=== PATIENT | male | born 1975 | race Caucasian/White ===

== ENCOUNTER 2017-12-28 14:32 | Inpatient (IN) | payer MEDICAID ==
[~2017-12-28] VITALS: Ht 180.3 cm; Wt 127.7 kg
[~2017-12-28 14:32] MED LIST: BENA20TA2 PO; BENA5TAB2 PO; CARB200T PO; DIAZ10TA PO; DIPH25CA61 PO; ETOMIDATE 20 MG/10 ML ONE; LEVO25TA4 PO; LEVO75TA5 PO; METF10002 PO; METF500T4 PO; METH750T87 PO; MIDAZOLAM 1 MG/ML, 2ML ONE; MORP30TA81 PO; NICO-586 TP; OMEP40CA6 PO; ONDA4TAB12 PO; OXYC-307 PO; OXYC20TA2 PO; PHEN-484 PO; PRAV10TA2 PO; PRAV20TA2 PO; PROM25TA10 PO; QUET300T5 PO; RANI150T4 PO; SENN1TAB67 PO; SERT100T PO; SERT25TA PO; SUCCINYLCHOLINE 20 MG/ML, 10ML ONE
[2017-12-28] MEDS ORDERED: NALOXONE 0.4 MG/ML, 1ML ONE (14:37)
[2017-12-28] MEDS ORDERED: SODIUM CHLORIDE 0.9% 1,000 ML IV ONE (14:51)
[2017-12-28] MEDS ORDERED: SODIUM CHLORIDE 0.9% 1,000ML IVBOLUS ONE (15:00)
[2017-12-28] MEDS ORDERED: PLEASE ENTER HEIGHT AND WEIGHT MC SCH ×2 (15:00→15:30)
[2017-12-28] MEDS ORDERED: NALOXONE 0.4 MG/ML, 1ML IVPush PRN ×2 (15:00→23:00)
[2017-12-28] MEDS ORDERED: SODIUM CHLORIDE FLUSH 10ML SYR IVF ONE (15:00)
[2017-12-28 15:16] LABS: BASOPHILS # (AUTO) 0.03 x10^3/uL (0-0.1); BASOPHILS % (AUTO) 0 % (0-1); EOSINOPHILS # (AUTO) 0.03 x10^3/uL (0-0.4); EOSINOPHILS % (AUTO) 0 % (1-7); LYMPHOCYTES # (AUTO) 1.75 x10^3/uL (1-3.4); LYMPHOCYTES % (AUTO) 22 % (22-44); MD NO; MEAN CORPUSCULAR HEMOGLOBIN 31.3 pg (27.5-34.5); MONOCYTES % (AUTO) 7 % (2-9); NEUTROPHILS # (AUTO) 5.69 x10^3/uL (1.8-6.8); NEUTROPHILS % (AUTO) 70 % (42-75); PLATELET COUNT 232 x10^3/uL (130-400); RED BLOOD COUNT 5.23 x10^6/uL (4.38-5.82); RED CELL DISTRIBUTION WIDTH 13.6 % (9.4-14.8)
[2017-12-28] MEDS ORDERED: PROPOFOL 10 MG/ML, 20ML IVPush ONE (15:30)
[2017-12-28] MEDS ORDERED: ETOMIDATE 20 MG/10 ML IV ONE (15:30)
[2017-12-28] MEDS ORDERED: SUCCINYLCHOLINE 20 MG/ML, 10ML IVPush ONE (15:30)
[2017-12-28] MEDS ORDERED: MIDAZOLAM 1 MG/ML, 5ML IVP ONE (15:30)
[2017-12-28 15:31] LABS: ALANINE AMINOTRANSFERASE 38 U/L (12-78); ALBUMIN 3.9 g/dL (3.4-5.0); ANION GAP 12 mmol/L (5-15); CALCIUM 8.1 mg/dL (8.5-10.1); CHLORIDE 110 mmol/L (98-107); CREATININE 1.39 mg/dL (0.7-1.3)
[2017-12-28 15:33] LABS: ALKALINE PHOSPHATASE 55 U/L (45-117); BILIRUBIN,TOTAL 0.7 mg/dL (0.2-1.0); SALICYLATE LEVEL 2.2 mg/dL (2.8-20.0); TOTAL PROTEIN 8.1 g/dL (6.4-8.2)
[2017-12-28 15:34] LABS: ACETAMINOPHEN < 2 mcg/mL (10-30)
[2017-12-28] MEDS ORDERED: PROPOFOL 100 ML IV ONE ×2 (16:25→18:50)
[2017-12-28 17:13] LABS: AMPHETAMINE SCREEN, URINE Negative (Negative); BARBITURATE SCREEN, URINE Negative (Negative); BENZODIAZEPINE SCREEN, URINE Positive (Negative); CANNABINOID SCREEN, URINE Positive (Negative); COCAINE SCREEN, URINE Negative (Negative); METHADONE SCREEN, URINE Negative (Negative); OPIATE SCREEN, URINE Positive (Negative)
[2017-12-28] MEDS ORDERED: BISACODYL 10 MG SUPP PR PRN (18:00)
[2017-12-28] MEDS: HEPARIN 5,000 UNITS/ML, 1ML SQ SCH (18:00)
[2017-12-28] MEDS ORDERED: THIAMINE 100 MG, MVI ADULT 10 ML, FOLIC ACID 1 MG in D5%-0.9% NACL 1,000 ML IV SCH (18:00)
[2017-12-28] MEDS ORDERED: TOPI50TA8 PO (18:20)
[2017-12-28] MEDS ORDERED: TRAZ100T15 PO (18:20)
[2017-12-28] MEDS ORDERED: NAPR500T4 PO (18:20)
[2017-12-28] MEDS ORDERED: DICY20TA3 PO (18:20)
[2017-12-28] MEDS ORDERED: PANT40TA3 PO (18:20)
[2017-12-28] MEDS ORDERED: TIZA4CAP PO (18:20)
[2017-12-28] MEDS ORDERED: GABA300C10 PO (18:20)
[2017-12-28] MEDS ORDERED: ALPR-475 PO (18:20)
[2017-12-28] MEDS ORDERED: BUSP10TA PO (18:20)
[2017-12-28] MEDS: PROPOFOL 100 ML IV PRN ×2 (18:43→21:35)
[2017-12-28] MEDS ORDERED: LIDOCAINE-MPF 1%, 2ML ENDO PRN (19:00)
[2017-12-28] MEDS ORDERED: LACTULOSE 20 GM/30 ML UDC NG PRN (19:00)
[2017-12-28] MEDS ORDERED: PHARMACY MAY ADJ FOR RENAL FX MC SCH (19:00)
[2017-12-28 19:08] LABS: MICROSCOPIC INDICATED
[2017-12-28 19:22] LABS: CULTURE INDICATED? NO
[2017-12-28] MEDS ORDERED: LORazepam 2 MG/ML, 1ML IVPush PRN (22:30)
[2017-12-29] MEDS: HEPARIN 5,000 UNITS/ML, 1ML SQ SCH ×3 (02:20→17:23)
[2017-12-29] MEDS: PROPOFOL 100 ML IV PRN ×2 (02:24→05:49)
[2017-12-29 04:15] VITALS: BP 130/78
[2017-12-29 04:38] LABS: BASOPHILS # (AUTO) 0.03 x10^3/uL (0-0.1); BASOPHILS % (AUTO) 0 % (0-1); EOSINOPHILS # (AUTO) 0.02 x10^3/uL (0-0.4); EOSINOPHILS % (AUTO) 0 % (1-7); LYMPHOCYTES # (AUTO) 1.33 x10^3/uL (1-3.4); LYMPHOCYTES % (AUTO) 14 % (22-44); MD NO; MEAN CORPUSCULAR HGB CONC 33.8 g/dL (33.2-36.2); MEAN CORPUSCULAR VOLUME 91.8 fL (81-97); MEAN PLATELET VOLUME 8.2 fL (7.4-10.4); MONOCYTES # (AUTO) 0.71 x10^3/uL (0.2-0.8); MONOCYTES % (AUTO) 8 % (2-9); NEUTROPHILS # (AUTO) 7.16 x10^3/uL (1.8-6.8); NEUTROPHILS % (AUTO) 77 % (42-75); PLATELET COUNT 195 x10^3/uL (130-400); RED BLOOD COUNT 4.92 x10^6/uL (4.38-5.82); RED CELL DISTRIBUTION WIDTH 13.5 % (9.4-14.8)
[2017-12-29 04:46] LABS: ALANINE AMINOTRANSFERASE 44 U/L (12-78); ALBUMIN 3.4 g/dL (3.4-5.0); ANION GAP 11 mmol/L (5-15); CALCIUM 7.7 mg/dL (8.5-10.1); CHLORIDE 110 mmol/L (98-107); CREATININE 1.23 mg/dL (0.7-1.3)
[2017-12-29 04:55] VITALS: BP 132/78
[2017-12-29 04:57] LABS: ALKALINE PHOSPHATASE 54 U/L (45-117); BILIRUBIN,TOTAL 0.6 mg/dL (0.2-1.0); THYROID STIMULATING HORMONE 0.789 mIU/L (0.358-3.740); TOTAL PROTEIN 7.2 g/dL (6.4-8.2)
[2017-12-29] MEDS ORDERED: PANTOPRAZOLE 40 MG IV IVPush SCH (07:30)
[2017-12-29] MEDS ORDERED: POTASSIUM CHLORIDE 10% 40 MEQ/30 ML UDC PO ONE (09:00)
[2017-12-29] MEDS: LEVOTHYROXINE 75 MCG TABLET PO SCH (09:38)
[2017-12-29] MEDS: IBUPROFEN 200 MG TABLET PO PRN ×2 (11:46→19:34)
[2017-12-29] MEDS ORDERED: THIAMINE 200 MG, MVI ADULT 10 ML, FOLIC ACID 1 MG in D5%-0.9% NACL 1,000 ML IV SCH (18:00)
[2017-12-29] MEDS ORDERED: NICOTINE 21 MG/24 HR PATCH.TD24 TD SCH (21:30)
[2017-12-30] MEDS: HEPARIN 5,000 UNITS/ML, 1ML SQ SCH ×3 (02:05→20:35)
[2017-12-30] MEDS: ONDANSETRON 2MG/ML, 2ML IVPush PRN (02:29)
[2017-12-30 02:42] VITALS: BP 132/87
[2017-12-30 05:00] LABS: BASOPHILS # (AUTO) 0.01 x10^3/uL (0-0.1); BASOPHILS % (AUTO) 0 % (0-1); EOSINOPHILS % (AUTO) 2 % (1-7); LYMPHOCYTES # (AUTO) 1.37 x10^3/uL (1-3.4); LYMPHOCYTES % (AUTO) 26 % (22-44); MD NO; MEAN CORPUSCULAR HEMOGLOBIN 31.2 pg (27.5-34.5); MEAN CORPUSCULAR HGB CONC 34.7 g/dL (33.2-36.2); MEAN PLATELET VOLUME 7.9 fL (7.4-10.4); MONOCYTES % (AUTO) 8 % (2-9); NEUTROPHILS % (AUTO) 64 % (42-75); PLATELET COUNT 159 x10^3/uL (130-400); RED BLOOD COUNT 4.29 x10^6/uL (4.38-5.82); RED CELL DISTRIBUTION WIDTH 13.3 % (9.4-14.8)
[2017-12-30 06:38] VITALS: BP 154/95
[2017-12-30] MEDS: LEVOTHYROXINE 75 MCG TABLET PO SCH (07:58)
[2017-12-30] MEDS: IBUPROFEN 200 MG TABLET PO PRN ×2 (09:12→17:16)
[2017-12-30 12:54] VITALS: BP 150/88
[2017-12-30] MEDS: THIAMINE 100MG TABLET PO SCH (14:29)
[2017-12-30] MEDS: MULTIVITAMIN 1 TABLET PO SCH (14:29)
[2017-12-30] MEDS: FOLIC ACID 1 MG TABLET PO SCH (14:29)
[2017-12-30] MEDS: NICOTINE 21 MG/24 HR PATCH.TD24 TD SCH (14:53)
[2017-12-30] MEDS: QUETIAPINE 100MG TABLET PO SCH (20:35)
[2017-12-30 20:53] VITALS: BP 147/90
[2017-12-30] MEDS ORDERED: TRAZODONE 100MG TABLET PO SCH (21:00)
[2017-12-31 02:00] VITALS: BP 139/76
[2017-12-31] MEDS: HEPARIN 5,000 UNITS/ML, 1ML SQ SCH ×3 (04:52→21:21)
[2017-12-31 06:49] VITALS: BP 144/88
[2017-12-31] MEDS ORDERED: CEFTRIAXONE PMX 1GM/50ML 50 ML IV SCH (08:30)
[2017-12-31] MEDS: MULTIVITAMIN 1 TABLET PO SCH (09:12)
[2017-12-31] MEDS: FOLIC ACID 1 MG TABLET PO SCH (09:12)
[2017-12-31] MEDS: LEVOTHYROXINE 75 MCG TABLET PO SCH (09:13)
[2017-12-31] MEDS: DOXYCYCLINE 100MG TABLET PO SCH ×2 (09:13→21:22)
[2017-12-31] MEDS: THIAMINE 100MG TABLET PO SCH (09:14)
[2017-12-31] MEDS: IBUPROFEN 200 MG TABLET PO PRN ×2 (11:22→18:13)
[2017-12-31] MEDS: ONDANSETRON 2MG/ML, 2ML IVPush PRN ×2 (11:23→21:31)
[2017-12-31 13:05] VITALS: BP 146/88
[2017-12-31] MEDS: NICOTINE 21 MG/24 HR PATCH.TD24 TD SCH (15:00)
[2017-12-31] MEDS: LACTOBACILLUS CHEW TABLET PO SCH ×2 (15:52→21:22)
[2017-12-31 20:00] VITALS: BP 149/95
[2017-12-31] MEDS ORDERED: GABAPENTIN 400 MG CAPSULE PO SCH (21:00)
[2017-12-31] MEDS: QUETIAPINE 100MG TABLET PO SCH (21:21)
[2017-12-31] MEDS: GABAPENTIN 400 MG CAPSULE PO SCH (21:21)
[2017-12-31] MEDS: CEFDINIR 300 MG CAPSULE PO SCH (21:22)
[2018-01-01 02:00] VITALS: BP 133/85
[2018-01-01] MEDS: HEPARIN 5,000 UNITS/ML, 1ML SQ SCH ×3 (05:02→20:35)
[2018-01-01] MEDS: IBUPROFEN 200 MG TABLET PO PRN ×3 (05:02→20:33)
[2018-01-01 06:50] VITALS: BP 146/91
[2018-01-01] MEDS: MULTIVITAMIN 1 TABLET PO SCH (07:55)
[2018-01-01] MEDS: CEFDINIR 300 MG CAPSULE PO SCH ×2 (07:55→20:33)
[2018-01-01] MEDS: FOLIC ACID 1 MG TABLET PO SCH (07:55)
[2018-01-01] MEDS: LACTOBACILLUS CHEW TABLET PO SCH ×3 (07:56→20:33)
[2018-01-01] MEDS: THIAMINE 100MG TABLET PO SCH (07:56)
[2018-01-01] MEDS: LEVOTHYROXINE 75 MCG TABLET PO SCH (07:56)
[2018-01-01] MEDS: DOXYCYCLINE 100MG TABLET PO SCH ×2 (07:56→20:33)
[2018-01-01] MEDS: GABAPENTIN 400 MG CAPSULE PO SCH ×4 (07:57→20:34)
[2018-01-01 13:11] VITALS: BP 145/83
[2018-01-01] MEDS: NICOTINE 21 MG/24 HR PATCH.TD24 TD SCH (15:08)
[2018-01-01 19:00] VITALS: BP 138/92
[2018-01-01] MEDS: QUETIAPINE 100MG TABLET PO SCH (20:33)
[2018-01-01 21:10] VITALS: BP 146/99
[2018-01-02] MEDS: HEPARIN 5,000 UNITS/ML, 1ML SQ SCH ×4 (03:23→21:05)
[2018-01-02 07:10] VITALS: BP 146/90
[2018-01-02] MEDS: CEFDINIR 300 MG CAPSULE PO SCH ×2 (09:27→20:28)
[2018-01-02] MEDS: LACTOBACILLUS CHEW TABLET PO SCH ×3 (09:27→20:29)
[2018-01-02] MEDS: FOLIC ACID 1 MG TABLET PO SCH (09:27)
[2018-01-02] MEDS: LEVOTHYROXINE 75 MCG TABLET PO SCH (09:27)
[2018-01-02] MEDS: MULTIVITAMIN 1 TABLET PO SCH (09:27)
[2018-01-02] MEDS: GABAPENTIN 400 MG CAPSULE PO SCH ×4 (09:28→20:40)
[2018-01-02] MEDS: THIAMINE 100MG TABLET PO SCH (09:28)
[2018-01-02] MEDS: DOXYCYCLINE 100MG TABLET PO SCH ×2 (09:28→20:30)
[2018-01-02] MEDS: IBUPROFEN 200 MG TABLET PO PRN (11:57)
[2018-01-02] MEDS: NICOTINE 21 MG/24 HR PATCH.TD24 TD SCH (15:26)
[2018-01-02 19:34] VITALS: BP 161/110
[2018-01-02] MEDS: QUETIAPINE 100MG TABLET PO SCH (20:29)
[2018-01-02] MEDS: CARVEDILOL 12.5 MG TABLET PO SCH (21:40)
[2018-01-02 23:04] VITALS: BP 144/92
[2018-01-03] MEDS: CARVEDILOL 12.5 MG TABLET PO SCH (06:32)
[2018-01-03] MEDS: IBUPROFEN 200 MG TABLET PO PRN ×2 (06:32→08:55)
[2018-01-03 07:28] VITALS: BP 136/87
[2018-01-03] MEDS: GABAPENTIN 400 MG CAPSULE PO SCH (08:47)
[2018-01-03] MEDS: DOXYCYCLINE 100MG TABLET PO SCH (08:47)
[2018-01-03] MEDS: CEFDINIR 300 MG CAPSULE PO SCH (08:48)
[2018-01-03] MEDS: THIAMINE 100MG TABLET PO SCH (08:48)
[2018-01-03] MEDS: MULTIVITAMIN 1 TABLET PO SCH (08:48)
[2018-01-03] MEDS: LACTOBACILLUS CHEW TABLET PO SCH (08:48)
[2018-01-03] MEDS: LEVOTHYROXINE 75 MCG TABLET PO SCH (08:48)
[2018-01-03] MEDS: FOLIC ACID 1 MG TABLET PO SCH (08:48)
[2018-01-03] MEDS: HEPARIN 5,000 UNITS/ML, 1ML SQ SCH (11:23)
[2018-01-03] MEDS ORDERED: IBUP-1484 PO (14:46)
[2018-01-03] MEDS ORDERED: GABA-827 PO ×2 (14:46)
[2018-01-03] MEDS ORDERED: ACID1TAB7 PO (14:46)
[2018-01-03] MEDS ORDERED: DOXY100T PO (14:46)
[2018-01-03] MEDS ORDERED: FOLI-17 PO (14:46)
[2018-01-03] MEDS ORDERED: MULT1TAB60 PO (14:46)
[2018-01-03] MEDS ORDERED: THIA100T6 PO (14:46)
[2018-01-03] MEDS ORDERED: CEFD300C37 PO (14:46)
[2018-01-03] MEDS ORDERED: CARV12.543 PO (14:46)
== END 2018-01-03 15:35 | disposition home or self-care (01) | DRG 917 ==
LOC: ED 17:34 → EDIP 17:41 → CCU 19:33 → 4EST 12-29 22:59 → 2N 01-01 20:51
PROVIDERS: ADMIT Hospitalist; ATTEND Hospitalist
PROC: 5A1935Z Respiratory Ventilation, Less than 24 Consecutive Hours (ICD-10-PCS; principal; 2017-12-28)
PROC: 0BH17EZ Insertion of Endotracheal Airway into Trachea, Via Natural or Artificial Opening (ICD-10-PCS; 2017-12-28)
DX: T42.4X2A Poisoning by benzodiazepines, intentional self-harm, initial encounter (principal); G93.41 Metabolic encephalopathy; J96.01 Acute respiratory failure with hypoxia; N17.0 Acute kidney failure with tubular necrosis; J18.9 Pneumonia, unspecified organism; I11.0 Hypertensive heart disease with heart failure; I50.9 Heart failure, unspecified; F11.23 Opioid dependence with withdrawal; F22 Delusional disorders; E03.9 Hypothyroidism, unspecified; Y92.89 Other specified places as the place of occurrence of the external cause; E11.9 Type 2 diabetes mellitus without complications; F12.20 Cannabis dependence, uncomplicated; F15.21 Other stimulant dependence, in remission; F31.9 Bipolar disorder, unspecified; F43.10 Post-traumatic stress disorder, unspecified; F43.21 Adjustment disorder with depressed mood
CPT/HCPCS: 31500; 36415; 36600; 51702; 70450; 71045; 80053; 80307; 80329; 81001; 82140; 82803; 82962; 83605; 83735; 84100; 84145; 84443; 84478; 85025; 87040; 87070; 87081; 87147; 87205; 93005; 94002; 94003; 94150; 96374; 96375; J0696; J1644; J2250; J2405; J2704; J3411; J7042; C9113; G0378; G0480; J0330; J7030; J7512